=== PATIENT | male | born 1975 | race Caucasian/White ===

== ENCOUNTER 2016-11-01 01:50 | Emergency (ER) | payer OTHER ==
[2016-11-01] MEDS ORDERED: IPRATROPIUM/ALBUTEROL (0.5MG/3MG) NEB INH ONE (02:06)
--- NOTE | 2016-11-01 02:12 | Emergency Department Record ---
History of Present Illness - General Chief Complaint: Shortness of breath Stated Complaint: AMARJIT Time Seen by Provider: 11/01/16 02:06 Source: Patient Mode of Arrival: Ambulatory Limitations: No limitations - History of Present Illness Initial Comments: 41 yo male presents to ED with a CC of cough and difficulty breathing tonight. Patient was diagnosed with bronchitis several days ago, just finished Zithromax yesterday. Patient denies fevers, chills, or previous lung problems. Patient denies chest pain symptoms. MD Complaint: Cough, Shortness of breath Onset/Timin -: Minutes(s) Severity scale (1-10): 6 Quality: Other Consistency: Constant Improves With: Nothing Worsens With: Lying flat Associated Symptoms: Cough Treatment Prior to Arrival Comment:: hot shower - Related Data Home Oxygen Therapy: No Home Medications Medication Instructions Recorded Confirmed Last Taken Levothyroxine Sodium 200 mcg PO QD vial 10/27/16 11/01/16 10/31/16 Lisinopril 30 mg PO DAILY tab 10/27/16 11/01/16 Unknown Previous Rx's Medication Instructions Recorded Albuterol Sulfate [Proair 90 mcg IH Q4H #1 [email or web address] 11/01/16 Respiclick] Prednisone [Prednisone 20Mg] 20 mg PO TID #12 tab 11/01/16 Allergies Allergy/AdvReac Type Severity Reaction Status Date / Time No Known Drug Allergies Allergy Verified 11/01/16 01:53 Travel Screening - Travel/Exposure Within Last 30 Days Have you traveled within the last 30 days?: No - Travel Symptoms Symptom Screening: None Review of Systems Constitutional: Denies: Chills, Fever, Malaise, Night sweats Eyes: Denies: Eye discharge, Eye pain ENT: Denies: Congestion, Ear pain, Epistaxis Respiratory: Denies: Cough, Dyspnea Cardiovascular: Denies: Chest pain, Dyspnea on exertion Endocrine: Denies: Fatigue, Heat or cold intolerance Gastrointestinal: Denies: Abdominal pain, Nausea, Vomiting Genitourinary: Denies: Incontinence, Retention Musculoskeletal: Denies: Arthralgia, Back pain, Gout, Joint swelling Skin: Denies: Bruising, Change in color Neurological: Denies: Abnormal gait, Confusion, Headache, Seizure Psychiatric: Denies: Anxiety Hematological/Lymphatic: Denies: Anemia, Blood Clots Past Medical History - SOCIAL HISTORY Smoking Status: Never smoker - RESPIRATORY Hx Respiratory Disorders: No - CARDIOVASCULAR Hx Cardio Disorders: Yes Hx Hypertension: Yes - NEURO Hx Neuro Disorders: No - GI Hx GI Disorders: No - Hx Genitourinary Disorders: No - ENDOCRINE Hx Endocrine Disorders: Yes Hx Thyroid Disease: Yes (low) - MUSCULOSKELETAL Hx Musculoskeletal Disorders: No - PSYCH Hx Psych Problems: No - HEMATOLOGY/ONCOLOGY Hx Hematology/Oncology Disorders: No Family Medical History Any Significant Family History?: Yes Family Hx Comment (NOT TO BE USED IN PLACE OF ITEMS BELOW): mom w/thyroid issues Hx Diabetes: Grandparents Hx Heart Disease: Grandparents Hx HTN: Father, Grandparents Physical Exam - General General Appearance: Alert, Oriented x3, Cooperative, No acute distress Limitations: No limitations - Head Head exam: Atraumatic, Normocephalic, Normal inspection Head exam detail: negative: Abrasion, Contusion, Samaniego's sign, General tenderness, Hematoma, Laceration - Eye Eye exam: Normal appearance. negative: Conjunctival injection, Periorbital swelling, Periorbital tenderness, Scleral icterus - ENT Ear exam: negative: Auricular hematoma, Auricular trauma Nasal Exam: negative: Active bleeding, Discharge, Dried blood, Foreign body Mouth exam: negative: Drooling, Laceration, Muffled voice, Tongue elevation - Neck Neck exam: Normal inspection. negative: Meningismus, Tenderness - Respiratory Respiratory exam: Normal lung sounds bilaterally. negative: Rales, Respiratory distress, Rhonchi, Stridor, Wheezes - Cardiovascular Cardiovascular Exam: Regular rate, Normal rhythm, Normal heart sounds - GI/Abdominal GI/Abdominal exam: Soft. negative: Rebound, Rigid, Tenderness - Rectal Rectal exam: Deferred - exam: Deferred - Extremities Extremities exam: Normal inspection - Back Back exam: Reports: Normal inspection - Neurological Neurological exam: Alert, Normal gait, Oriented X3 - Psychiatric Psychiatric exam: Normal affect, Normal mood - Skin Skin exam: Normal color. negative: Abrasion Type of lesion: negative: abrasion Course Vital Signs 11/01/16 02:04 Temperature 98.3 F Pulse Rate [ 94 H Pulse Ox Probe] Respiratory 24 Rate Blood Pressure 149/91 [Left Arm] Pulse Ox 95 - Reevaluation(s) Reevaluation #1: 11/01/16 02:39 Patient reassessed following duoneb, reports improvement in his symptoms. Patient appears stable for discharge on albuterol and prednisone for his bronchitis symptoms. Disposition Disposition: Discharge Clinical Impression: Bronchitis Disposition: Home, Self-Care Condition: (2) Stable Instructions: Acute Bronchitis (ED) Additional Instructions: Return to ED if your symptoms worsen or if you have any concerns. Prednisone and Albuterol as directed. Follow-up with your family doctor in 3-5 days as directed. Prescriptions: Prednisone [Prednisone 20Mg] 20 mg PO TID #12 tab Albuterol Sulfate [Proair Respiclick] 90 mcg IH Q4H #1 [email or web address] Forms: Patient Portal Access Time of Disposition: 02:12
[2016-11-01] MEDS ORDERED: PREDNISONE 20 MG TAB PO ONE (02:38)
== END 2016-11-01 02:55 | disposition home or self-care (01) ==
LOC: ER 01:50
DX: J20.9 Acute bronchitis, unspecified (principal); R06.02 Shortness of breath
CPT/HCPCS: 99283 ×2; 94640; J7512

== ENCOUNTER 2016-11-02 20:29 | Emergency (ER) | payer OTHER ==
--- NOTE | 2016-11-02 20:43 | Emergency Department Record ---
History of Present Illness - General Chief Complaint: Difficulty Breathing Stated Complaint: AMARJIT Time Seen by Provider: 11/02/16 20:33 Source: Patient Mode of Arrival: Ambulatory Limitations: No limitations - History of Present Illness Initial Comments: The patient is here due to a one week hx of cough, congestion and SOB. He was originally seen about a week ago and prescribed a Zpak and inhaller. The patient came back to the ER 2 days ago and had neb tx's and Prednisone started. Now for the last day he feels like the AMARJIT is slightly worse and he feels that he cannot take a deep breath in. He is also having very mild chest discomfort with breathing. He denies any pain, fever, cough, leg pain or swelling. MD Complaint: Shortness of breath Onset/Timin -: Days(s) Severity: Mild Severity scale (1-10): 3 Quality: Aching Consistency: Constant Improves With: Nothing - Related Data Home Medications Medication Instructions Recorded Confirmed Last Taken Levothyroxine Sodium 200 mcg PO QD vial 10/27/16 11/02/16 1 Day Ago Lisinopril 30 mg PO DAILY tab 10/27/16 11/02/16 1 Day Ago Previous Rx's Medication Instructions Recorded Albuterol Sulfate [Proair 90 mcg IH Q4H #1 aer.[email or web address] 11/01/16 Respiclick] Prednisone [Prednisone 20Mg] 20 mg PO TID #12 tab 11/01/16 Lorazepam [Ativan] 1 mg PO Q12HR #10 tablet 11/02/16 Allergies Allergy/AdvReac Type Severity Reaction Status Date / Time No Known Drug Allergies Allergy Verified 11/02/16 20:41 Travel Screening - Travel/Exposure Within Last 30 Days Have you traveled within the last 30 days?: No - Travel/Exposure Within Last Year Have you traveled outside the [place] in the last year?: No - Additonal Travel Details Have you been exposed to anyone with a communicable illness?: No - Travel Symptoms Symptom Screening: None Review of Systems Constitutional: Denies: Chills, Fever, Malaise ENT: Reports: Congestion Respiratory: Reports: Cough, Dyspnea. Denies: Hemoptysis, Stridor, Wheezes Cardiovascular: Reports: Chest pain. Denies: Arrhythmia Endocrine: Denies: Fatigue Gastrointestinal: Denies: Diarrhea Genitourinary: Denies: Dysuria Musculoskeletal: Denies: Arthralgia Skin: Denies: Bruising Past Medical History - SOCIAL HISTORY Smoking Status: Never smoker Alcohol Use: Occassional Drug Use: None - RESPIRATORY Hx Respiratory Disorders: Yes Hx Bronchitis: Yes Hx Sleep Apnea: Yes Hx of CPAP: Yes - CARDIOVASCULAR Hx Cardio Disorders: Yes Hx Hypertension: Yes - NEURO Hx Neuro Disorders: No - GI Hx GI Disorders: No - Hx Genitourinary Disorders: No - ENDOCRINE Hx Endocrine Disorders: Yes Hx Thyroid Disease: Yes (low) - MUSCULOSKELETAL Hx Musculoskeletal Disorders: No - PSYCH Hx Psych Problems: No - HEMATOLOGY/ONCOLOGY Hx Hematology/Oncology Disorders: No Family Medical History Any Significant Family History?: Yes Family Hx Comment (NOT TO BE USED IN PLACE OF ITEMS BELOW): mom w/thyroid issues Hx Diabetes: Grandparents Hx Heart Disease: Grandparents Hx HTN: Father, Grandparents Physical Exam - General General Appearance: Alert, Oriented x3, Cooperative, No acute distress - Head Head exam: Atraumatic, Normocephalic, Normal inspection - Eye Eye exam: Normal appearance, PERRL - ENT Throat exam: Normal inspection. negative: Tonsillar erythema, Tonsillar exudate - Neck Neck exam: Normal inspection, Full ROM. negative: Tenderness - Respiratory Respiratory exam: Normal lung sounds bilaterally. negative: Respiratory distress - Cardiovascular Cardiovascular Exam: Regular rate, Normal rhythm, Normal heart sounds - GI/Abdominal GI/Abdominal exam: Soft, Normal bowel sounds. negative: Tenderness - Extremities Extremities exam: Normal inspection, Full ROM, Normal capillary refill. negative: Tenderness - Back Back exam: Reports: Normal inspection, Full ROM. Denies: Muscle spasm, Rash noted, Tenderness - Neurological Neurological exam: Alert, Normal gait. negative: Abnormal gait, Motor sensory deficit - Psychiatric Psychiatric exam: negative: Anxious, Depressed Course Vital Signs 11/02/16 20:32 Temperature 97.6 F Pulse Rate 102 H Respiratory 18 Rate Blood Pressure 147/98 Pulse Ox 94 L - Reevaluation(s) Reevaluation #1: The patient is resting comfortably. He denies any CP at this time or any AMARJIT. I explained to him that his tests are all WNL. Due to the fact this is his 3rd visit here in a week for the same thing and he is not feeling better I did recommend hospital admission. I explained to him we would monitor his heart overnight and possibly obtain a Cardiology consult tomorrow if needed. The patient is refusing the admission. I explained to him the risks of leaving which are that he could go home and have an [place], Stroke, become disabled and even . The patient presently has proper decision making capacity and understands the risks of leaving. He is to see his PCP later this week and is instructed to return to the ER for ANY problems or worsening symptoms. 11/02/16 21:59 Medical Decision Making - Data Complexity MDM Data: Labs Ordered and/or Reviewed, X-Ray Ordered and/or Reviewed, EKG Ordered and/or Reviewed - Lab Data Result diagrams: 11/02/16 21:00 11/02/16 21:00 - EKG Data -: EKG Interpreted by Me EKG: No Acute Changes, Normal EKG - Radiology Data Radiology results: Report reviewed (CXR: Neg) Disposition Disposition: Discharge Clinical Impression: Atypical Chest Pain Disposition: Against Medical Advice Condition: (1) Good Instructions: Dyspnea (ED) Additional Instructions: Please continue your regular medicines. Please take the Ativan as directed. Please return to the ER for any increase or change in your pain, or any worsening symptoms. Prescriptions: Lorazepam [Ativan] 1 mg PO Q12HR #10 tablet Forms: Patient Portal Access Time of Disposition: 22:04
[2016-11-02] MEDS ORDERED: IPRATROPIUM/ALBUTEROL (0.5MG/3MG) NEB INH ONE (20:50)
[2016-11-02 21:11] LABS: BASO % 0.5 % (0-6); GRAN % 79.1 % (47-80); HEMATOCRIT 44.3 % (42.0-52.0); HEMOGLOBIN 14.9 gm/dl (14.0-18.0); LYMPH % 15.2 % (16-45); MEAN CORPUSCULAR HEMOGLOBIN 29.3 pg (27-33); MEAN CORPUSCULAR HGB CONC 33.6 g/dl (32-36); MEAN PLATELET VOLUME 9.9 fl (7.4-10.4); MONO % 5.2 % (0-9); PLATELET COUNT 305 K/uL (130-400); RED BLOOD COUNT 5.09 M/uL (4.40-5.70); RED CELL DISTRIBUTION WIDTH 14.6 % (11.5-14.5); WHITE BLOOD COUNT W/O DIFF 8.5 K/uL (4.2-12.2)
[2016-11-02 21:21] LABS: ANION GAP 16.9 (7-16); BLOOD UREA NITROGEN 23 mg/dL (9-20); CARBON DIOXIDE 23.1 mmol/L (22-30); CREATINE PHOSPHOKINASE 115 U/L (55-170); CREATININE 0.8 mg/dL (0.66-1.25); EST GLOMERULAR FILTRATION RATE > 60 ml/min; GLUCOSE,RANDOM 132 mg/dL (70-110)
[2016-11-02 21:25] LABS: INR 1.04; PARTIAL THROMBOPLASTIN TIME 28.1 SECONDS (24.5-39.1); PROTHROMBIN TIME (PATIENT) 11.8 SECONDS (9.5-12.1)
[2016-11-02 21:27] LABS: D-DIMER 0.33 mg/L FEU (0-0.59)
[2016-11-02 21:34] LABS: CKMB 0.8 ug/L (0-6)
[2016-11-02 21:35] LABS: TROPONIN I < 0.012 ng/mL (0.00-0.034)
== END 2016-11-02 22:13 | disposition left against medical advice (07) ==
LOC: ER 20:29
DX: R07.89 Other chest pain (principal); R06.02 Shortness of breath; I10 Essential (primary) hypertension
CPT/HCPCS: 71020; 80048; 82550; 82553; 84484; 85025; 85379; 85610; 85730; 93005; 93010; 94640; 99284

== ENCOUNTER 2017-12-12 11:49 | Emergency (ER) | payer OTHER ==
[2017-12-12] MEDS ORDERED: OXYMETAZOLINE HCL 15 ML BTL NASAL ONE (12:16)
--- NOTE | 2017-12-12 12:16 | Emergency Department Record ---
History of Present Illness - General Chief Complaint: Difficulty Breathing Stated Complaint: AMARJIT Time Seen by Provider: 12/12/17 12:06 Source: Patient Mode of Arrival: Ambulatory Limitations: No limitations - History of Present Illness Initial Comments: 42 yo male presents with cough, nasal congestion, and shortness of breath that started last Monday. He was seen in the [facility] yesterday. he started Zithromax and Prednisone. He states he is not feeling better. It has been less that 24 hours since starting the medications. No fever. No chest pain. The nasal discharge is greenish as is the sputum. No edema. No rashes. He took benadryl and sudafed today. No improvement but he has a dry mouth. MD Complaint: Cough, Shortness of breath Onset/Timin -: Days(s) Severity: Moderate Consistency: Intermittent Improves With: Nothing Worsens With: Coughing Context: Recent URI Associated Symptoms: Denies other symptoms, Cough, Sputum production Treatments Prior to Arrival: Other (Prednisone and Zithromax) - Related Data Previous Rx's Medication Instructions Recorded Fluticasone Propionate [Flonase] 2 spray EACH NARES DAILY #1 bottle 12/12/17 Allergies Allergy/AdvReac Type Severity Reaction Status Date / Time albuterol Allergy TACHYCARDIA Verified 12/12/17 12:06 Travel Screening - Travel/Exposure Within Last 30 Days Have you traveled within the last 30 days?: No - Travel/Exposure Within Last Year Have you traveled outside the [place] in the last year?: No - Additonal Travel Details Have you been exposed to anyone with a communicable illness?: No - Travel Symptoms Symptom Screening: None Review of Systems Constitutional: Reports: Malaise. Denies: Chills, Fever Eyes: Denies: Eye discharge, Eye pain, Photophobia, Vision change ENT: Reports: Congestion. Denies: Ear pain, Throat pain Respiratory: Reports: Cough, Dyspnea. Denies: Hemoptysis, Stridor, Wheezes Cardiovascular: Denies: Chest pain, Palpitations, Syncope Endocrine: Reports: Fatigue Gastrointestinal: Denies: Abdominal pain, Diarrhea, Nausea, Vomiting Genitourinary: Denies: Dysuria, Frequency, Hematuria Musculoskeletal: Denies: Arthralgia, Back pain, Joint swelling, Myalgia Skin: Denies: Bruising, Change in color, Rash Neurological: Denies: Headache, Numbness, Weakness Psychiatric: Reports: Anxiety (He states he has occasionally panic attacks. They are worse with being sick) Hematological/Lymphatic: Denies: Blood Clots, Easy bleeding, Easy bruising, Swollen glands Past Medical History - SOCIAL HISTORY Smoking Status: Never smoker Alcohol Use: None Drug Use: None - RESPIRATORY Hx Respiratory Disorders: Yes Hx Bronchitis: Yes Hx Sleep Apnea: Yes Hx of CPAP: Yes - CARDIOVASCULAR Hx Cardio Disorders: Yes Hx Hypertension: Yes - NEURO Hx Neuro Disorders: No - GI Hx GI Disorders: No - Hx Genitourinary Disorders: No - ENDOCRINE Hx Endocrine Disorders: Yes Hx Thyroid Disease: Yes (low) - MUSCULOSKELETAL Hx Musculoskeletal Disorders: No - PSYCH Hx Psych Problems: No - HEMATOLOGY/ONCOLOGY Hx Hematology/Oncology Disorders: No Family Medical History Any Significant Family History?: No Family Hx Comment (NOT TO BE USED IN PLACE OF ITEMS BELOW): mom w/thyroid issues Hx Diabetes: Grandparents Hx Heart Disease: Grandparents Hx HTN: Father, Grandparents Physical Exam - General General Appearance: Alert, Oriented x3, Cooperative, No acute distress Limitations: No limitations - Head Head exam: Atraumatic, Normal inspection - Eye Eye exam: Normal appearance, PERRL. negative: Conjunctival injection, Periorbital swelling, Scleral icterus - ENT ENT exam: Mucous membranes dry, Normal orophraynx, TM's normal bilaterally. negative: Normal exam, Mucous membranes moist Ear exam: Normal external inspection Nasal Exam: Discharge, Sinus tenderness, Other (nasal mucosal edema with near closure, mouth breathing). negative: Active bleeding, Dried blood Mouth exam: Normal external inspection Teeth exam: Normal inspection. negative: Dental caries Throat exam: Normal inspection. negative: Tonsillar erythema, Tonsillomegaly, Tonsillar exudate, R peritonsillar mass, L peritonsillar mass - Neck Neck exam: Normal inspection. negative: Lymphadenopathy - Respiratory Respiratory exam: Normal lung sounds bilaterally, Other (Normal work of breathing, no conversational dyspnea). negative: Accessory muscle use, Prolonged expiratory, Rales, Respiratory distress, Rhonchi, Stridor, Wheezes - Cardiovascular Cardiovascular Exam: Normal rhythm, Normal heart sounds, Tachycardia - GI/Abdominal GI/Abdominal exam: Soft. negative: Tenderness - Rectal Rectal exam: Deferred - exam: Deferred - Extremities Extremities exam: Normal inspection, Full ROM, Normal capillary refill. negative: Tenderness - Back Back exam: Reports: Normal inspection, Full ROM. Denies: CVA tenderness (R), CVA tenderness (L), Muscle spasm - Neurological Neurological exam: Alert, Normal gait, Oriented X3 - Psychiatric Psychiatric exam: Normal affect, Normal mood. negative: Agitated, Anxious - Skin Skin exam: Dry, Intact, Normal color, Warm Course Vital Signs 12/12/17 12/12/17 11:51 12:04 Temperature 97.6 F Pulse Rate 113 H Respiratory 18 Rate Blood Pressure 152/126 Blood Pressure 149/104 [Right Arm] Pulse Ox 95 - Reevaluation(s) Reevaluation #1: 12/11/17 CXR was negative. Normal CXR. 12/12/17 12:20 12/12/17 13:24 The CBC was reviewed No acute changes The CMP with mild elevation of BUN otherwise no acute changes The The HR is improved to the 80's The influenza is negative Medical Decision Making - Lab Data Result diagrams: 12/12/17 12:35 12/12/17 12:35 Disposition Disposition: Discharge Clinical Impression: Bronchitis Disposition: Home, Self-Care Condition: (1) Good Instructions: Acute Bronchitis (ED) Additional Instructions: Rest and stay well hydrated Call your doctor for close follow up check in the office Prescriptions: Fluticasone Propionate [Flonase] 2 spray EACH NARES DAILY #1 bottle Forms: Patient Portal Access Time of Disposition: 13:25 Quality - Quality Measures Quality Measures: N/A - Blood Pressure Screening Does Patient Have Any of the Following: No Blood Pressure Classification: Hypertensive Reading Systolic Measurement: 152 Diastolic Measurement: 126 Screening for High Blood Pressure: < Pre-Hypertensive BP, F/U Documented > [ [id number]] Pre-Hypertensive Follow-up Interventions: Referral to alternative/primary care provider.
[2017-12-12] MEDS ORDERED: 0.9 % SODIUM CHLORIDE 1,000 ML BAG IV ONE (12:21)
[2017-12-12 12:42] LABS: BASO % 0.2 % (0-6); EOS % 0.4 % (0-6); GRAN % 73.5 % (47-80); HEMATOCRIT 46.5 % (42.0-52.0); HEMOGLOBIN 15.9 gm/dl (14.0-18.0); LYMPH % 17.5 % (16-45); MEAN CORPUSCULAR HEMOGLOBIN 29.1 pg (27-33); MEAN CORPUSCULAR HGB CONC 34.2 g/dl (32-36); MONO % 8.4 % (0-9); PLATELET COUNT 292 K/uL (130-400); RED BLOOD COUNT 5.47 M/uL (4.40-5.70); RED CELL DISTRIBUTION WIDTH 14.5 % (11.5-14.5); WHITE BLOOD COUNT W/O DIFF 8.3 K/uL (4.2-12.2)
[2017-12-12 12:51] LABS: INFLUENZA A NEGATIVE (NEGATIVE); INFLUENZA B NEGATIVE (NEGATIVE)
[2017-12-12 12:55] LABS: BLOOD UREA NITROGEN 26 mg/dL (6-20); CREATININE 0.8 mg/dL (0.7-1.2); EST GLOMERULAR FILTRATION RATE > 60 mL/min
[2017-12-12 12:58] LABS: GLUCOSE,RANDOM 111 mg/dL (74-109)
== END 2017-12-12 13:53 | disposition home or self-care (01) ==
LOC: ER 11:49
DX: J20.9 Acute bronchitis, unspecified (principal); R06.02 Shortness of breath; I10 Essential (primary) hypertension
CPT/HCPCS: 80048; 85025; 87400; 99283; 99284; J7030